=== PATIENT | female | born 1960 | race Caucasian/White ===

== ENCOUNTER → 2017-05-08 | Outpatient (CLI) | payer OTHER ==
--- NOTE | 2017-05-09 06:33 | REP ---
Clinical: History of goiter. Technique: Real time rolle scale and color evaluation using linear high frequency transducer. Findings: Thyroid gland is essentially normal in contour and overall echogenicity without significant lesion or cyst. Right lobe measures 6.0 x 2.0 x 1.3 cm with a solitary hypoechoic nodule in the lower pole measuring 6 x 2 x 5 mm. Left lobe measures 5.6 x 1.4 x 1.2 cm with solitary hypoechoic nodule in the mid pole measuring 3 x 3 x 3 mm. Isthmus measures 2.7 mm in width. Impression: Relatively normal thyroid gland as described above with solitary nodules measuring up to 6 mm. Signed by Sidney Azar MD 05/09/2017 05:21 A
== END ==
LOC: M RAD 11:38
PROVIDERS: ATTEND Nurse Practitioner Family
DX: E04.9 Nontoxic goiter, unspecified (principal)

== ENCOUNTER → 2017-05-15 | Outpatient (REF) | payer OTHER ==
[2017-05-15 11:49] LABS: BASO # 0.1 K/mm3 (0.0-0.2); BASO % 0.8 % (0.0-1.0); EOS # 0.2 K/mm3 (0.0-0.50); EOS % 3.2 % (0.0-3.0); LARGE UNSTAINED CELL # 0.1 K/mm3 (0.0-0.4); LARGE UNSTAINED CELL % 1.6 % (0.0-4.0); LYMPH # 2.4 K/mm3 (1.5-4.5); LYMPH % 31.7 % (24.0-44.0); MEAN CORPUSCULAR HEMOGLOBIN 29.5 pg (27.0-33.0); MEAN CORPUSCULAR VOLUME 86.8 fl (80.0-96.0); MONO # 0.5 K/mm3 (0.0-0.8); MONO % 6.9 % (0.0-5.0); NEUTROPHILS # 4.1 K/mm3 (1.8-7.7); NEUTROPHILS % 55.9 % (36.0-66.0); PLATELET COUNT, AUTOMATED 238 k/mm3 (150-450); RED CELL DISTRIBUTION WIDTH 12.7 % (11.5-14.5); WHITE BLOOD COUNT 7.3 K/mm3 (4.0-10.0)
[2017-05-15 15:59] LABS: ALBUMIN 3.7 GM/DL (3.2-5.2); ALBUMIN/GLOBULIN RATIO 0.95 (1.00-1.93); ALKALINE PHOSPHATASE 68 U/L (45-117); ALT/SGPT 27 U/L (12-78); ANION GAP 5 MEQ/L (8-16); AST/SGOT 26 U/L (15-37); BILIRUBIN,TOTAL 0.4 MG/DL (0.2-1.0); BLOOD UREA NITROGEN 19 MG/DL (7-18); CALCIUM LEVEL 8.7 MG/DL (8.5-10.1); CARBON DIOXIDE LEVEL 30 MEQ/L (21-32); CHLORIDE LEVEL 101 MEQ/L (98-107); CHOLESTEROL LEVEL 204 MG/DL (<200); CREATININE FOR GFR 0.67 MG/DL (0.55-1.02); FREE T4 0.98 NG/DL (0.76-1.46); GLOMERULAR FILTRATION RATE > 60.0 (>51); GLUCOSE, FASTING 83 MG/DL (70-105); POTASSIUM SERUM 3.7 MEQ/L (3.5-5.1); SODIUM LEVEL 136 MEQ/L (136-145); TOTAL PROTEIN 7.6 GM/DL (6.4-8.2); TRIGLYCERIDES LEVEL 102 MG/DL (<150)
== END ==
LOC: M LABDRAW1 11:21
PROVIDERS: ATTEND Nurse Practitioner Family
DX: F32.0 Major depressive disorder, single episode, mild (principal); E04.9 Nontoxic goiter, unspecified; Z11.59 Encounter for screening for other viral diseases; Z13.220 Encounter for screening for lipoid disorders

== ENCOUNTER → 2017-06-05 | Outpatient (CLI) | payer OTHER ==
--- NOTE | 2017-06-05 12:42 | REP ---
BILATERAL SCREENING DIGITAL MAMMOGRAM: Comparisons are 01/31/2010, 02/18/2012, and 05/29/2016. There is very dense breast parenchyma, similar to the comparison studies. There is a new focal nodule-like density inferiorly in the right breast on the MLO view only measuring 5.5 mm. It is not identified on the CC view. There are no focal suspicious findings in the left breast. IMPRESSION: Incomplete. BIRADS category 0. Additional imaging evaluation is needed. The patient should return for spot compression views of the nodular density in the right breast. The decision for additional views, ultrasound or MRI will be based on these initial follow-up views. BI-RADS/ACR category 0 mammogram, incomplete. Additional imaging and/or prior images are needed before a final assessment can be assigned. This mammogram was interpreted with the aid of an FDA-approved computer-aided detection system. A. Negative x-ray reports should not delay biopsy if a dominant or clinically suspicious mass is present. B. Four to eight percent of cancers are not identified by x-ray. C. Adenosis and dense breasts may obscure an underlying neoplasm. The patient letter being requested is M0, dense breasts.
== END ==
LOC: M WHC 10:29
PROVIDERS: ATTEND Nurse Practitioner Family
DX: Z12.31 Encounter for screening mammogram for malignant neoplasm of breast (principal); R92.8 Other abnormal and inconclusive findings on diagnostic imaging of breast

== ENCOUNTER → 2017-06-05 | Outpatient (REF) | payer OTHER | LOC: M SFHCWAGY 11:08 | PROVIDERS: ATTEND Nurse Practitioner Family | DX: Z01.419 Encounter for gynecological examination (general) (routine) without abnormal findings (principal) ==

== ENCOUNTER → 2017-06-18 | Outpatient (CLI) | payer OTHER ==
--- NOTE | 2017-06-18 10:43 | REP ---
DIAGNOSTIC MAMMOGRAM RIGHT BREAST: Multiple spot compression views of the right breast are performed and correlated with the recent mammogram of 06/05/2017. The suspected nodular opacity on the right MLO view compresses out to an unchanged appearance compared to other prior exams. There is no persistent nodule on today's spot compression views. The findings are benign. IMPRESSION: ACR 2 benign. No persistent nodule on today's spot compression views. Recommend followup mammogram in 1 year. The patient letter being requested is M1. Signed by Robert Sparrow MD 06/18/2017 04:40 P
== END ==
LOC: M RAD 09:48
PROVIDERS: ATTEND Nurse Practitioner Family
DX: R92.8 Other abnormal and inconclusive findings on diagnostic imaging of breast (principal)

== ENCOUNTER → 2017-12-11 | Outpatient (CLI) | payer OTHER ==
[~2017-12-11] MED LIST: E-Z-GAS II EFFERVESCENT PACKET (SODIUM BICARB./CITRIC ACID/SIMETHICONE) As Ordered; E-Z-HD 98% w/w 340GM SUSP BTL As Ordered; E-Z-PAQUE 96% w/w SUSP 176GM BTL As Ordered
== END ==
LOC: M RAD 08:23
DX: K21.9 Gastro-esophageal reflux disease without esophagitis (principal)
CPT/HCPCS: 74241

== ENCOUNTER → 2018-02-19 | Outpatient (REF) | payer OTHER ==
[2018-02-19 10:54] LABS: BASO # 0.1 10^3/uL (0.0-0.2); BASO % 0.8 % (0.0-1.0); EOS # 0.2 10^3/uL (0.0-0.50); HEMATOCRIT 38.7 % (36.0-47.0); HEMOGLOBIN 12.8 g/dl (12.0-15.5); IMMATURE GRANULOCYTE % 0.1 % (0-3.0); LYMPH # 2.4 10^3/uL (1.5-4.5); LYMPH % 31.1 % (24.0-44.0); MEAN CORPUSCULAR HEMOGLOBIN 28.8 pg (27.0-33.0); MEAN CORPUSCULAR HGB CONC 33.1 g/dl (32.0-36.5); MEAN CORPUSCULAR VOLUME 87.2 fl (80.0-96.0); MONO # 0.7 10^3/uL (0.0-0.8); MONO % 8.7 % (0.0-5.0); NEUTROPHILS # 4.3 10^3/uL (1.8-7.7); NEUTROPHILS % 56.3 % (36.0-66.0); PLATELET COUNT, AUTOMATED 271 10^3/uL (150-450); RED BLOOD COUNT 4.44 10^6/uL (4.00-5.40); RED CELL DISTRIBUTION WIDTH 13.2 % (11.5-14.5); WHITE BLOOD COUNT 7.6 10^3/uL (4.0-10.0)
[2018-02-19 11:24] LABS: ALBUMIN 3.5 GM/DL (3.2-5.2); ALKALINE PHOSPHATASE 76 U/L (45-117); ALT/SGPT 35 U/L (12-78); ANION GAP 4 MEQ/L (8-16); AST/SGOT 29 U/L (7-37); BILIRUBIN,TOTAL 0.6 MG/DL (0.2-1.0); BLOOD UREA NITROGEN 18 MG/DL (7-18); CALCIUM LEVEL 8.5 MG/DL (8.5-10.1); CARBON DIOXIDE LEVEL 32 MEQ/L (21-32); CHLORIDE LEVEL 106 MEQ/L (98-107); CHOLESTEROL LEVEL 194 MG/DL (<200); CREATININE FOR GFR 0.74 MG/DL (0.55-1.30); FREE T4 0.81 NG/DL (0.76-1.46); GLOMERULAR FILTRATION RATE > 60.0 (>51); GLUCOSE, FASTING 88 MG/DL (70-100); HDL CHOLESTEROL 50 MG/DL (>40); NON-HDL-C 144 MG/DL; POTASSIUM SERUM 3.9 MEQ/L (3.5-5.1); SODIUM LEVEL 142 MEQ/L (136-145); TOTAL PROTEIN 7.4 GM/DL (6.4-8.2); TRIGLYCERIDES LEVEL 105 MG/DL (<150)
== END ==
LOC: M LABDRAW1 10:28
DX: K21.9 Gastro-esophageal reflux disease without esophagitis (principal); E04.9 Nontoxic goiter, unspecified; Z13.220 Encounter for screening for lipoid disorders

== ENCOUNTER → 2018-02-26 | Outpatient (CLI) | payer OTHER | LOC: M RAD 14:33 | DX: E04.9 Nontoxic goiter, unspecified (principal) | CPT/HCPCS: 76536 ==

== ENCOUNTER 2018-05-18 06:52 | Day surgery (SDC) | payer OTHER ==
[2018-05-18] MEDS: NS 1,000 ML IV (07:08)
[2018-05-18] MEDS ORDERED: PROPOFOL 200 MG/20 ML VIAL As Ordered (07:39)
[2018-05-18] MEDS ORDERED: fentaNYL 100 MCG/2 ML INJECTION (J3010) As Ordered (07:39)
[2018-05-18] MEDS ORDERED: LIDOCAINE 2% INJ 100 MG/5 ML SDV (FOR ANES.) As Ordered (07:39)
== END 2018-05-18 08:35 | disposition home or self-care (01) ==
LOC: M OPP 06:52
DX: Z12.11 Encounter for screening for malignant neoplasm of colon (principal); K64.0 First degree hemorrhoids; K22.8 Other specified diseases of esophagus; K44.9 Diaphragmatic hernia without obstruction or gangrene; R12 Heartburn; K21.9 Gastro-esophageal reflux disease without esophagitis; Z79.899 Other long term (current) drug therapy; Z83.3 Family history of diabetes mellitus; Z82.49 Family history of ischemic heart disease and other diseases of the circulatory system
CPT/HCPCS: 45378

== ENCOUNTER → 2018-06-08 | Outpatient (CLI) | payer OTHER | LOC: M WHC 10:31 | DX: Z12.31 Encounter for screening mammogram for malignant neoplasm of breast (principal); N60.31 Fibrosclerosis of right breast; N60.32 Fibrosclerosis of left breast | CPT/HCPCS: 77067 ==

== ENCOUNTER → 2018-06-08 | Outpatient (REF) | payer OTHER ==
[2018-06-10 14:15] LABS: HPV HYBRID CAPTURE II Negative (Negative)
== END ==
LOC: M SFHCWAGY 12:23
DX: Z12.4 Encounter for screening for malignant neoplasm of cervix (principal)

== ENCOUNTER 2018-07-23 18:41 | Emergency (ER) | payer OTHER ==
[2018-07-23] MEDS: ACETAMINOPHEN 325 MG TAB PO (20:32)
[2018-07-23] MEDS: ONDANSETRON 4 MG ORAL DISINTEGRATING TAB (Q0162 PER 1MG) PO (20:34)
== END 2018-07-23 21:36 | disposition home or self-care (01) ==
LOC: M ED 18:41
DX: S06.0X0A Concussion without loss of consciousness, initial encounter (principal); S00.83XA Contusion of other part of head, initial encounter; W22.8XXA Striking against or struck by other objects, initial encounter; Y92.018 Other place in single-family (private) house as the place of occurrence of the external cause; Z79.899 Other long term (current) drug therapy
CPT/HCPCS: Q0162

== ENCOUNTER → 2019-02-19 | Outpatient (REF) | payer OTHER ==
[~2019-02-19] MED LIST changes: +BIOT50004 PO; -E-Z-GAS II EFFERVESCENT PACKET (SODIUM BICARB./CITRIC ACID/SIMETHICONE) As Ordered; -E-Z-HD 98% w/w 340GM SUSP BTL As Ordered; -E-Z-PAQUE 96% w/w SUSP 176GM BTL As Ordered; +FAMO40TA3; +LORA-243; +MULT1TAB10 PO; +PANT40TA3; +PROB250C; +SIMP0.9A; +TRIA0.1P11 MT; +TRIA1PST TOP; +TRIAMCINOLONE; +VENTAER INH; +VITATAB11 PO; +ZOFR4TAB14 PO; +ZYRT10CA PO; +[UNRECOGNIZED DRUG - CODE] EX
[2019-02-19 12:50] LABS: HEMOGLOBIN A1c 5.8 %
[2019-02-19 13:01] LABS: C REACTIVE PROTEIN QUANTITATIV < 0.30 MG/DL (0.00-0.30); CHOLESTEROL LEVEL 223 MG/DL (<200); CHOLESTEROL RISK RATIO 4.207 (<5); CPK CREATINE PHOSPHOKINASE 99 U/L (26-192); FREE T4 0.97 NG/DL (0.76-1.46); HDL CHOLESTEROL 53 MG/DL (>40); LDL CHOLESTEROL 144.4 MG/DL (<100); NON-HDL-C 170 MG/DL; TRIGLYCERIDES LEVEL 128 MG/DL (<150)
[2019-02-19 13:02] LABS: TOTAL 25(OH) VITAMIN D 23.8 NG/ML (30.0-100.0)
[2019-02-19 13:03] LABS: PTH INTACT 41.8 PG/ML (18.5-88.0)
== END ==
LOC: M SFHCPLAZ 10:18
PROVIDERS: ATTEND Family Medicine
DX: E78.2 Mixed hyperlipidemia (principal); E04.1 Nontoxic single thyroid nodule

== ENCOUNTER → 2019-02-25 | Outpatient (CLI) | payer OTHER ==
--- NOTE | 2019-02-26 03:56 | REP ---
Clinical: Thyroid nodule. Technique: Real time rolle scale and color evaluation using linear high frequency transducer. Comparison: 02/26/2018. Findings: Thyroid parenchyma is relatively normal with few scattered relatively stable nodules/cysts again noted. Isthmus measures 1.7 mm in width. Right lobe measures 5.7 x 1.7 x 1.4 cm with 3 x 2 x 3 mm upper pole cyst, 4 x 2 x 4 mm solid mid pole nodule, 2 x 2 x 1 mm mid/lower pole cyst and 1 x 2 x 2 mm lower pole cyst. Left lobe measures 5.8 x 1.5 x 1.4 cm with two 3 x 2 x 3 mm upper pole nodules and 4 x 3 x 4 mm complex mid pole cyst. Impression: Stable examination. No significant change from prior examination. Electronically Signed by Sidney Azar MD 02/26/2019 03:48 A
== END ==
LOC: M RAD 07:47
PROVIDERS: ATTEND Family Medicine
DX: E04.1 Nontoxic single thyroid nodule (principal)

== ENCOUNTER 2019-03-08 17:32 | Emergency (ER) | payer OTHER ==
[~2019-03-08] VITALS: Ht 172.7 cm; Wt 81.8 kg
[2019-03-08] MEDS ORDERED: D 50CAP PO (19:44)
[2019-03-08] MEDS ORDERED: FAMO40TA3 PO (19:44)
[2019-03-08] MEDS ORDERED: SM A10CA PO (19:44)
[2019-03-08] MEDS ORDERED: PANT40TA3 PO (19:44)
--- NOTE | 2019-03-08 21:16 | REPVR ---
EXAM: US Duplex Left Lower Extremity Veins, Limited EXAM DATE/TIME: 03/08/2019 8:46 PM CLINICAL HISTORY: 59 years old, female; Pain; Other: Knee; Additional info: Leg pain TECHNIQUE: Imaging protocol: Real-time Duplex ultrasound of the Left Lower Extremity with 2-D rolle scale, color Doppler flow and spectral waveform analysis. Limited exam focused on the left lower extremity veins. COMPARISON: No relevant prior studies available. FINDINGS: Left deep veins: Unremarkable. The common femoral, femoral and popliteal veins are patent without thrombus. Normal compressibility, augmentation response and Doppler waveforms. Left superficial veins: Unremarkable. Saphenofemoral junction is patent without thrombus. Soft tissues: Unremarkable. IMPRESSION: No sonographic evidence of deep vein thrombosis. Electronically signed by: Sylvester Taylor On 03/08/2019 21:16:07 PM
[2019-03-08 21:54] VITALS: BP 140/69
--- NOTE | 2019-03-09 01:14 | REP ---
Clinical: Acute knee pain Technique: AP, lateral, bilateral oblique and sunrise views left knee . Findings: Mild tricompartmental osteoarthritic degenerative changes are appreciated including cortical irregularities of the femoral condyles, subchondral/periarticular sclerosis involving the posterior patellar surface along with marginal patellar spurring and mild joint space narrowing. No acute fracture dislocation. No obvious effusion. Impression: Mild tricompartmental osteoarthritic degenerative changes. No acute fracture or dislocation. Electronically Signed by Sidney Azar MD 03/09/2019 01:05 A
== END 2019-03-08 22:00 | disposition home or self-care (01) ==
LOC: M ED 17:32
DX: M25.562 Pain in left knee (principal); M17.12 Unilateral primary osteoarthritis, left knee; M25.561 Pain in right knee; Z79.899 Other long term (current) drug therapy

== ENCOUNTER → 2019-07-06 | Outpatient (CLI) | payer OTHER ==
[~2019-07-06] MED LIST changes: +D 50CAP PO; +FAMO40TA3 PO; +PANT40TA3 PO; +SM A10CA PO
--- NOTE | 2019-07-06 12:43 | REPMRS ---
Patient History The patient states she had a clinical breast exam in 06/2019. Patient is postmenopausal. Family history of breast cancer at age 50 or over in maternal aunt, breast cancer at age 50 or over in maternal aunt, breast cancer at age 55 in maternal cousin. Took hormonal contraceptives for 12 years. 3D TOMOSYNTHESIS WAS PERFORMED. The [facility] lifetime risk for breast cancer is 16.0%. Digital Woman Screen Mammo: July 06, 2019 - Exam #: [id number] Bilateral CC and MLO view(s) were taken. Technologist: Evelyn Gregorio, Technologist Prior study comparison: June 08, 2018, bilateral digital woman screen mammo performed at [facility]. June 18, 2017, right breast digital mammo diagnostic unilateral, performed at [facility]. FINDINGS: The breast tissue is heterogeneously dense. This may lower the sensitivity of mammography. There has been no change in the appearance of the mammogram from the prior studies. There is a moderate amount of residual fibroglandular tissue which is fairly symmetric. There is no interval development of dominant mass, areas of architectural distortion, or clustered microcalcification typical of malignancy. Assessment: BI-RADS/ACR category 1 mammogram. Negative Mammogram. Recommendation Routine screening mammogram in 1 year (for women over age 40). This mammogram was interpreted with the aid of an FDA-approved computer-aided dectection system. Electronically Signed By: Robert Sparrow MD 07/06/19 [id number]
== END ==
LOC: M WHC 09:56
PROVIDERS: ATTEND Nurse Practitioner Family
DX: Z12.31 Encounter for screening mammogram for malignant neoplasm of breast (principal); Z80.3 Family history of malignant neoplasm of breast

== ENCOUNTER → 2019-07-26 | Outpatient (CLI) | payer OTHER ==
--- NOTE | 2019-07-26 15:13 | REP ---
Right shoulder: Three views. History: Impingement syndrome right shoulder. Findings: There is minimal spurring at the acromioclavicular articulation. The glenohumeral and AC joints are normally aligned. Periarticular soft tissues are unremarkable. No erosive changes seen. Impression: Minimal osteoarthritic spurring at the AC joint. Otherwise negative. Electronically Signed by Reggie Montesinos MD 07/26/2019 03:04 P
--- NOTE | 2019-07-26 18:34 | REP ---
Cervical spine radiographs: Seven views: History: Impingement syndrome. Right shoulder. Comparison CT study of the cervical spine is from July 23, 2018. Findings: Lateral views of the cervical spine done and flexion and extension show straightening. Cervical vertebral body heights are preserved. Degenerative disc changes are seen with anterior posterior spurring at C5-6 and C6-7. No subluxation or instability is seen. Vertebral soft tissues are unremarkable. Open mouth odontoid and AP views are normal in appearance. Oblique views demonstrate intact neural foramina and normally aligned facets bilaterally at each cervical level. Impression: Degenerative disc disease at C5-6 and C6-7. Otherwise negative. Electronically Signed by Reggie Montesinos MD 07/27/2019 09:34 A
== END ==
LOC: M RAD 13:34
PROVIDERS: ATTEND Family Medicine
DX: M75.41 Impingement syndrome of right shoulder (principal)

== ENCOUNTER → 2019-07-26 | Outpatient (REF) | payer OTHER ==
[2019-07-26 13:25] LABS: BASO # 0.1 10^3/uL (0.0-0.2); BASO % 0.7 % (0.0-1.0); EOS # 0.2 10^3/uL (0.0-0.5); EOS % 2.9 % (0.0-3.0); HEMATOCRIT 40.5 % (36.0-47.0); HEMOGLOBIN 12.9 g/dl (12.0-15.5); LYMPH # 2.6 10^3/uL (1.5-5.0); LYMPH % 31.6 % (24.0-44.0); MEAN CORPUSCULAR HEMOGLOBIN 27.8 pg (27.0-33.0); MEAN CORPUSCULAR HGB CONC 31.9 g/dl (32.0-36.5); MEAN CORPUSCULAR VOLUME 87.3 fl (80.0-96.0); MONO # 0.7 10^3/uL (0.0-0.8); MONO % 8.5 % (0.0-5.0); NEUTROPHILS # 4.6 10^3/uL (1.5-8.5); NEUTROPHILS % 56.1 % (36.0-66.0); PLATELET COUNT, AUTOMATED 231 10^3/uL (150-450); RED BLOOD COUNT 4.64 10^6/uL (4.00-5.40); WHITE BLOOD COUNT 8.2 10^3/uL (4.0-10.0)
[2019-07-26 13:26] LABS: APPEARANCE, URINE HAZY (CLEAR); BACTERIA, URINE AUTO 2+ (NEGATIVE); BILIRUBIN, URINE AUTO NEGATIVE (NEGATIVE); BLOOD, URINE BLOOD NEGATIVE (NEGATIVE); COLOR, URINE YELLOW (YELLOW); GLUCOSE, URINE (UA) AUTO NEGATIVE (NEGATIVE); KETONE, URINE AUTO NEGATIVE (NEGATIVE); LEUKOCYTE ESTERASE, URINE AUTO NEGATIVE (NEGATIVE); MUCUS, URINE SMALL (NEGATIVE); NITRITE, URINE AUTO NEGATIVE (NEGATIVE); PROTEIN, URINE AUTO NEGATIVE (NEGATIVE); RBC, URINE AUTO 1 /HPF (0-3); SPECIFIC GRAVITY URINE AUTO 1.017 (1.002-1.035); SQUAMOUS EPITHELIAL CELL UR AU 6 /HPF (0-6); UROBILINOGEN, URINE AUTO 0.2 mg/dL (0.0-2.0); WBC, URINE AUTO 1 /HPF (0-3)
[2019-07-26 13:31] LABS: ALT/SGPT 34 U/L (12-78); BILIRUBIN,TOTAL 0.6 MG/DL (0.2-1.0); BLOOD UREA NITROGEN 21 MG/DL (7-18); CALCIUM LEVEL 9.3 MG/DL (8.5-10.1); CARBON DIOXIDE LEVEL 29 MEQ/L (21-32); CHLORIDE LEVEL 105 MEQ/L (98-107); CHOLESTEROL LEVEL 219 MG/DL (<200); CHOLESTEROL RISK RATIO 3.775 (<5); CREATININE FOR GFR 0.74 MG/DL (0.55-1.30); GLOMERULAR FILTRATION RATE > 60.0 (>51); GLUCOSE, FASTING 84 MG/DL (70-100); HDL CHOLESTEROL 58 MG/DL (>40); LDL CHOLESTEROL 138 MG/DL (<100); NON-HDL-C 161 MG/DL; POTASSIUM SERUM 4.1 MEQ/L (3.5-5.1); SODIUM LEVEL 141 MEQ/L (136-145); TOTAL PROTEIN 8.4 GM/DL (6.4-8.2); TRIGLYCERIDES LEVEL 117 MG/DL (<150)
[2019-07-26 13:38] LABS: TOTAL 25(OH) VITAMIN D 64.6 NG/ML (30.0-100.0)
[2019-07-26 13:57] LABS: MALB URINE SIEMENS 12.4 MG/L; MAU/CREAT RATIO 9.9 MCG/MG (0.0-30.0)
[2019-07-26 15:02] LABS: HEMOGLOBIN A1c 5.5 %
== END ==
LOC: M LABDRAW1 13:09
PROVIDERS: ATTEND Family Medicine
DX: R73.01 Impaired fasting glucose (principal); E55.9 Vitamin D deficiency, unspecified

== ENCOUNTER → 2019-12-14 | Outpatient (CLI) | payer OTHER ==
--- NOTE | 2019-12-14 14:52 | REPVR ---
PROCEDURE INFORMATION: Exam: CT Temporal Bones Without Contrast. Exam date and time: 12/14/2019 1:59 PM Age: 59 years old Clinical indication: Other: Otorrhea; Additional info: Otorrhea, left ear TECHNIQUE: Imaging protocol: Computed tomography images of the temporal bones without contrast. Radiation optimization: All CT scans at this facility use at least one of these dose optimization techniques: automated exposure control; mA and/or kV adjustment per patient size (includes targeted exams where dose is matched to clinical indication); or iterative reconstruction. COMPARISON: CT Head without contrast 07/23/2018 8:05 PM FINDINGS: RIGHT TEMPORAL BONE: Right inner ear: Normal. Right ossicles and middle ear: Normal. The middle ear ossicles are intact. Right external auditory canal: Normal. Right facial nerve canal: Normal. Right jugular foramen: No jugular dehiscence. Right carotid canal: No aberrent carotid canal. Right mastoid air cells: Normal. No mastoid effusions. LEFT TEMPORAL BONE: Left inner ear: Normal. Left ossicles and middle ear: Normal. The middle ear ossicles are intact. Left external auditory canal: Normal. Left facial nerve canal: Normal. Left jugular foramen: No jugular dehiscence. Left carotid canal: No aberrent carotid canal. Left mastoid air cells: Normal. No mastoid effusions. IMPRESSION: No acute findings. Electronically signed by: Tang Atkinson On 12/14/2019 14:52:02 PM
== END ==
LOC: M RAD 13:48
PROVIDERS: ATTEND Otolaryngology
DX: H92.12 Otorrhea, left ear (principal)

== ENCOUNTER → 2020-07-27 | Outpatient (CLI) | payer OTHER ==
[~2020-07-27] MED LIST changes: +PANT40TA29; +PANT40TA29 PO; -PANT40TA3; -PANT40TA3 PO
--- NOTE | 2020-07-27 12:31 | REPMRS ---
Patient History The patient states she had a clinical breast exam in 07/2020. Family history of breast cancer at age 50 or over in maternal aunt, breast cancer at age 50 or over in maternal aunt, breast cancer at age 55 in maternal cousin. Took hormonal contraceptives for 12 years. 3D TOMOSYNTHESIS WAS PERFORMED. The [facility] lifetime risk for breast cancer is 15.6%. VOLPARA DENSITY B. Digital Woman Screen Mammo: July 27, 2020 - Exam #: [id number] Bilateral CC and MLO view(s) were taken. Technologist: Evelyn Gregorio, Technologist Prior study comparison: July 06, 2019, bilateral digital woman screen mammo performed at [facility]. June 08, 2018, bilateral digital woman screen mammo performed at [facility]. FINDINGS: The breast tissue is heterogeneously dense. This may lower the sensitivity of mammography. There has been no change in the appearance of the mammogram from the prior studies. There is a moderate amount of residual fibroglandular tissue which is fairly symmetric. There is no interval development of dominant mass, areas of architectural distortion, or clustered microcalcification typical of malignancy. Assessment: BI-RADS/ACR category 1 mammogram. Negative Mammogram. Recommendation Routine screening mammogram in 1 year (for women over age 40). This mammogram was interpreted with the aid of an FDA-approved computer-aided dectection system. Electronically Signed By: Robert Sparrow MD 07/27/20 0401
== END ==
LOC: M WHC 10:33
PROVIDERS: ATTEND Nurse Practitioner Family
DX: Z12.31 Encounter for screening mammogram for malignant neoplasm of breast (principal)

== ENCOUNTER → 2020-08-30 | Outpatient (CLI) | payer OTHER ==
[2020-08-30 15:42] LABS: ALBUMIN 3.9 GM/DL (3.2-5.2); ALT/SGPT 33 U/L (12-78); BILIRUBIN,TOTAL 0.6 MG/DL (0.2-1.0); BLOOD UREA NITROGEN 20 MG/DL (7-18); CALCIUM LEVEL 9.4 MG/DL (8.5-10.1); CARBON DIOXIDE LEVEL 30 MEQ/L (21-32); CHLORIDE LEVEL 106 MEQ/L (98-107); CHOLESTEROL LEVEL 200 MG/DL (<200); CREATININE FOR GFR 0.67 MG/DL (0.55-1.30); FREE T4 0.94 NG/DL (0.76-1.46); GLOMERULAR FILTRATION RATE > 60.0 (>51); GLUCOSE, FASTING 84 MG/DL (70-100); HDL CHOLESTEROL 50 MG/DL (>40); LDL CHOLESTEROL 125 MG/DL (<100); NON-HDL-C 150 MG/DL; NT-PRO BNP 57 PG/ML (<125); POTASSIUM SERUM 4.5 MEQ/L (3.5-5.1); SODIUM LEVEL 140 MEQ/L (136-145); TOTAL PROTEIN 8.1 GM/DL (6.4-8.2); TRIGLYCERIDES LEVEL 126 MG/DL (<150)
[2020-08-30 19:33] LABS: HEMOGLOBIN A1c 5.9 %
== END ==
LOC: M PLALAB 10:27
PROVIDERS: ATTEND Family Medicine
DX: R73.01 Impaired fasting glucose (principal); E78.2 Mixed hyperlipidemia; R60.9 Edema, unspecified

== ENCOUNTER → 2021-02-06 | Outpatient (REF) | payer OTHER ==
[2021-02-06 14:03] LABS: BASO # 0.1 10^3/uL (0.0-0.2); BASO % 0.8 % (0.0-1.0); EOS # 0.2 10^3/uL (0.0-0.5); EOS % 2.9 % (0.0-3.0); HEMOGLOBIN 13.8 g/dl (12.0-15.5); LYMPH # 2.4 10^3/uL (1.5-5.0); LYMPH % 32.9 % (24.0-44.0); MEAN CORPUSCULAR HGB CONC 32.1 g/dl (32.0-36.5); MEAN CORPUSCULAR VOLUME 87.2 fl (80.0-96.0); MONO # 0.6 10^3/uL (0.0-0.8); MONO % 8.1 % (2.0-8.0); PLATELET COUNT, AUTOMATED 269 10^3/uL (150-450); RED BLOOD COUNT 4.93 10^6/uL (4.00-5.40); WHITE BLOOD COUNT 7.3 10^3/uL (4.0-10.0)
[2021-02-06 14:35] LABS: ALBUMIN 3.8 GM/DL (3.2-5.2); ALT/SGPT 40 U/L (12-78); BILIRUBIN,TOTAL 0.6 MG/DL (0.2-1.0); BLOOD UREA NITROGEN 16 MG/DL (7-18); CARBON DIOXIDE LEVEL 31 MEQ/L (21-32); CHLORIDE LEVEL 105 MEQ/L (98-107); FERRITIN 75 NG/ML (8-252); FREE T4 0.98 NG/DL (0.76-1.46); GLOMERULAR FILTRATION RATE > 60.0 (>51); GLUCOSE, FASTING 95 MG/DL (70-100); LIPASE 111 U/L (73-393); POTASSIUM SERUM 4.2 MEQ/L (3.5-5.1); SODIUM LEVEL 141 MEQ/L (136-145); TOTAL PROTEIN 7.8 GM/DL (6.4-8.2)
[2021-02-06 14:36] LABS: PTH INTACT 38.3 PG/ML (18.5-88.0); TOTAL 25(OH) VITAMIN D 78.5 NG/ML (30.0-100.0)
[2021-02-06 14:40] LABS: MAU/CREAT RATIO 4.8 MCG/MG (0.0-30.0)
[2021-02-06 14:58] LABS: HEMOGLOBIN A1c 5.5 %
[2021-02-07 15:09] LABS: H PYLORI SERUM QUANT IgG ABY 0.44 (0.00-0.79); INSULIN LEVEL 16.6 uIU/mL (2.6-24.9)
== END ==
LOC: M SFHCPLAZ 09:30
PROVIDERS: ATTEND Family Medicine
DX: R73.01 Impaired fasting glucose (principal); E55.9 Vitamin D deficiency, unspecified; E04.1 Nontoxic single thyroid nodule; R60.9 Edema, unspecified; K21.00 Gastro-esophageal reflux disease with esophagitis, without bleeding

== ENCOUNTER → 2021-02-20 | Outpatient (CLI) | payer OTHER ==
--- NOTE | 2021-02-20 08:44 | REP ---
INDICATION: RUQ PAIN. FINDINGS: Multiple ultrasonographic images of the liver show the hepatic parenchymal echo texture to appear mildly diffusely increased. There are no focal masses. There is no intrahepatic ductal dilatation. The common bile duct measures approximately 5.8 mm in its greatest transverse dimension. Multiple ultrasonographic images of the gallbladder show no focal or diffuse gallbladder wall thickening. There are no echogenic foci within the gallbladder lumen, which casts acoustic shadows. There is no pericholecystic edema. Images of the pancreatic region show no gross abnormality. The imaged portion of the right kidney is unremarkable. IMPRESSION: There is some evidence for fatty infiltration of the liver. Accredited by the [employer] in General Ultrasound. <Electronically signed by Shorty Barone > 02/20/21 [id number]
== END ==
LOC: M RAD 07:20
PROVIDERS: ATTEND Family Medicine
DX: R10.11 Right upper quadrant pain (principal)

== ENCOUNTER → 2021-04-13 | Outpatient (CLI) | payer OTHER ==
--- NOTE | 2021-04-13 15:35 | REP ---
INDICATION: EPIGASTRIC PAIN. COMPARISON: None TECHNIQUE/RADIOTRACER AND DOSE: FOLLOWING THE INTRAVENOUS ADMINISTRATION OF 6.6 MCI TECHNETIUM 99 M-MEBROFENIN, MULTIPLE IMAGES OF THE RIGHT UPPER QUADRANT ARE PERFORMED FOR 60 MINUTES. NEXT 8 OZ OF ENSURE ENLIVE IS INGESTED AND FURTHER IMAGING IS PERFORMED FOR 65 MINUTES. FINDINGS: THE GALLBLADDER IS VISUALIZED AT 25 MINUTES POST INJECTION. THERE IS BILIARY TO BOWEL TRANSIT AT 20MINUTES POST INJECTION. THERE IS NO SCINTIGRAPHIC EVIDENCE OF CHOLECYSTITIS. GALLBLADDER EJECTION FRACTION IS CALCULATED TO BE 41% WHICH IS NORMAL. IMPRESSION: NORMAL GALLBLADDER EJECTION FRACTION. <Electronically signed by Robert Sparrow > 04/13/21 [id number]
== END ==
LOC: M RAD 12:34
PROVIDERS: ATTEND Physician Assistant
DX: R10.13 Epigastric pain (principal)
CPT/HCPCS: 78227; A9537

== ENCOUNTER → 2021-05-11 | Outpatient (CLI) | payer OTHER ==
[~2021-05-11] MED LIST changes: +E-Z-GAS II EFFERVESCENT PACKET (SODIUM BICARB./CITRIC ACID/SIMETHICONE) As Ordered ONE; +E-Z-HD 98% w/w 340GM SUSP BTL As Ordered ONE; +E-Z-PAQUE 96% w/w SUSP 176GM BTL As Ordered ONE
--- NOTE | 2021-05-11 14:58 | REP ---
INDICATION: GERD W/ ESOPHAGITIS. COMPARISON: None TECHNIQUE: This procedure was performed by Kerry Flanagan [facility], under the direct supervision of Dr. Montesinos. Images were reviewed with Dr. Montesinos prior to dictation. Liquid barium and gas producing crystals were given in the erect position, as well as liquid barium in the prone oblique position in order to perform a double contrast upper GI examination. Additional liquid barium was given at the end of the examination in order to perform a small-bowel follow-through. FINDINGS: The hydropress operator film shows no organomegaly or pathological masses. The intestinal gas pattern is unremarkable. The oral and pharyngeal stages of deglutition demonstrated a hesitancy in the oral transfer. Esophageal transport is prompt and efficient and there is no evidence of esophagitis, stricture, or mucosal ring. There is evidence of a small hiatal hernia. No gastroesophageal reflux was visualized on today's exam. The stomach klein are normally outlined. The rugal folds are smooth and regular. There is no gastritis, neoplasm, or ulcerative disease. The duodenal klein are normally outlined. The mucosal folds are smooth and regular. There is no duodenitis, peptic ulcer disease or neoplasm. The visualized portion of the proximal small bowel appears normal in course and caliber. The barium column was followed through the small bowel to the level of the terminal ileum. Small bowel transit time is approximately 50 minutes. During fluoroscopy gentle palpation shows all loops are freely movable and pliable. There is no fixed angulated loops. The small bowel mucosal pattern is normal in course and caliber. There are multiple diverticulum throughout the small intestine, most are located in the distal ileum. There is no transition to suggest a partial small bowel obstruction. Spot filming of the terminal ileum shows it to be unremarkable. IMPRESSION: 1. Small hiatal hernia. 2. Small bowel diverticulosis as described above. One minute of fluoroscopy time was utilized for this procedure. Some fluoroscopic images are performed with last image hold technology. These images require no additional radiation. <Electronically signed by Kerry Flanagan > 05/11/21 1443 <Electronically signed by Demario Montesinos > 05/11/21 [id number]
== END ==
LOC: M RAD 09:16
PROVIDERS: ATTEND Family Medicine
DX: K21.00 Gastro-esophageal reflux disease with esophagitis, without bleeding (principal); K44.9 Diaphragmatic hernia without obstruction or gangrene; K57.10 Diverticulosis of small intestine without perforation or abscess without bleeding

== ENCOUNTER → 2021-07-23 | Outpatient (CLI) | payer OTHER ==
[~2021-07-23] MED LIST changes: -E-Z-GAS II EFFERVESCENT PACKET (SODIUM BICARB./CITRIC ACID/SIMETHICONE) As Ordered ONE; -E-Z-HD 98% w/w 340GM SUSP BTL As Ordered ONE; -E-Z-PAQUE 96% w/w SUSP 176GM BTL As Ordered ONE
--- NOTE | 2021-07-23 14:01 | REP ---
INDICATION: GERD. COMPARISON: None. TECHNIQUE/RADIOTRACER AND DOSE: 1.03 mCi of Technetium-99m sulfur colloid was ingested in two scrambled eggs and 6 ounces of water and sequential anterior and posterior images are acquired for an 89-minute imaging observation period. Regions of interest are drawn around the stomach to plot gastric emptying. FINDINGS: Expected T1/2 is 90 minutes. Twenty-two% emptying is observed in this patient during the 89-minute imaging observation period, for a calculated T1/2 in this patient of 204 minutes. IMPRESSION: Delayed gastric emptying <Electronically signed by Demario Montesinos > 07/23/21 1123
== END ==
LOC: M RAD 11:38
PROVIDERS: ATTEND Family Medicine
DX: K21.00 Gastro-esophageal reflux disease with esophagitis, without bleeding (principal)
CPT/HCPCS: 78264; A9541

== ENCOUNTER → 2021-07-31 | Outpatient (CLI) | payer OTHER ==
[~2021-07-31] MED LIST changes: +GASTROGRAFIN SOLUTION 30ML (Q9963) As Ordered ONE; +ISOVUE-370 76% 100ML VIAL As Ordered ONE
--- NOTE | 2021-07-31 12:57 | REP ---
INDICATION: IBS. COMPARISON: None TECHNIQUE: Axial contrast-enhanced images from the lung bases to the pubic symphysis using oral and 100 cc Isovue 370 intravenous contrast material. Coronal and sagittal reformations obtained. This CT examination was performed using the following dose reduction techniques: Automated exposure control, adjustment of mA and/or kv according to the patient's size, and the use of iterative reconstruction technique. FINDINGS: Mild fatty infiltration to the liver noted without focal hepatic lesion. Spleen, pancreas, gallbladder, bilateral adrenal glands and kidneys are normal. The enteric system including stomach, small, and large bowel appears normal. No evidence for obstruction or acute inflammatory process. Normal terminal ileum and appendix are identified in the right lower quadrant. Few scattered sigmoid diverticula noted without acute diverticulitis. Pelvis demonstrates normal bladder and enlarged myomatous uterus. No ascites. No free air. No intraperitoneal or retroperitoneal adenopathy. Abdominal aorta and vasculature appear normal. Musculoskeletal structures are intact and without acute osseous abnormality. IMPRESSION: No acute abdominopelvic pathology appreciated. Relatively normal appearance to the enteric system with few scattered sigmoid diverticula noted. Hepatosteatosis. Enlarged myomatous uterus. <Electronically signed by Sidney Azar > 07/31/21 [id number]
== END ==
LOC: M RAD 09:32
PROVIDERS: ATTEND Internal Medicine Gastroenterology
DX: K58.9 Irritable bowel syndrome, unspecified (principal)
CPT/HCPCS: 74177; Q9963; Q9967

== ENCOUNTER → 2021-09-10 | Outpatient (CLI) | payer OTHER ==
[~2021-09-10] MED LIST changes: -GASTROGRAFIN SOLUTION 30ML (Q9963) As Ordered ONE; -ISOVUE-370 76% 100ML VIAL As Ordered ONE
--- NOTE | 2021-09-11 09:30 | REP ---
INDICATION: TAMI ANNUAL MAMMO. COMPARISON: Multiple prior screening examinations, the most recent, 07/27/2020 TECHNIQUE: Digital screening (2D) mammography was performed bilaterally in the CC and MLO projections. Additionally, breast tomosynthesis (3D mammography) was performed bilaterally in the CC and MLO projections. FINDINGS: By history, the patient has no complaints of a palpable breast abnormality or other significant breast complaints. The Volpara volumetric breast density pattern is b, there are scattered areas of fibroglandular density. In the posterior 3rd of the right breast, directly deep to the nipple seen only on the MLO view, there is a 6 mm in diameter oval circumscribed isodense asymmetry. IMPRESSION: BIRADS/ACR : Category 0: Incomplete, need additional imaging evaluation. This patient's Tyrer-Cuzick lifetime breast cancer risk assessment score is 15.2%. This mammogram was interpreted with the aid of an FDA-approved computer-aided detection system. The patient states she has not had a clinical breast exam in more than 1 year. The patient letter being requested is M0. RECOMMENDATION: 2D and 3D focal compression of the right breast in the MLO orientation, an exaggerated CC view, a true lateral view, and ultrasound. <Electronically signed by Guy Nichols > 09/11/21 0921
== END ==
LOC: M WHC 15:32
PROVIDERS: ATTEND Family Medicine
DX: R92.2 Inconclusive mammogram (principal)

== ENCOUNTER → 2021-10-16 | Outpatient (CLI) | payer OTHER ==
[2021-10-16 15:36] LABS: HEMOGLOBIN A1c 5.5 %
[2021-10-16 16:00] LABS: ALBUMIN 3.9 GM/DL (3.2-5.2); ALT/SGPT 32 U/L (12-78); BILIRUBIN,TOTAL 0.5 MG/DL (0.2-1.0); BLOOD UREA NITROGEN 17 MG/DL (7-18); CALCIUM LEVEL 9.1 MG/DL (8.5-10.1); CARBON DIOXIDE LEVEL 31 MEQ/L (21-32); CHLORIDE LEVEL 104 MEQ/L (98-107); CHOLESTEROL LEVEL 216 MG/DL (<200); CHOLESTEROL RISK RATIO 3.927 (<5); CREATININE FOR GFR 0.73 MG/DL (0.55-1.30); FREE T4 0.92 NG/DL (0.76-1.46); GLOMERULAR FILTRATION RATE > 60.0 (>51); GLUCOSE, FASTING 84 MG/DL (70-100); HDL CHOLESTEROL 55 MG/DL (>40); LDL CHOLESTEROL 142 MG/DL (<100); NON-HDL-C 161 MG/DL; POTASSIUM SERUM 4.4 MEQ/L (3.5-5.1); PTH INTACT 36.5 PG/ML (18.5-88.0); SODIUM LEVEL 139 MEQ/L (136-145); TOTAL 25(OH) VITAMIN D 89.5 NG/ML (30.0-100.0); TOTAL PROTEIN 8.1 GM/DL (6.4-8.2); TRIGLYCERIDES LEVEL 94 MG/DL (<150)
== END ==
LOC: M PLALAB 11:42
PROVIDERS: ATTEND Family Medicine
DX: R73.01 Impaired fasting glucose (principal); E55.9 Vitamin D deficiency, unspecified; E78.2 Mixed hyperlipidemia; E04.1 Nontoxic single thyroid nodule

== ENCOUNTER → 2021-10-16 | Outpatient (CLI) | payer OTHER ==
--- NOTE | 2021-10-16 11:33 | REP ---
INDICATION: RIGHT BREAST ADD VIEWS. COMPARISON: 09/10/2021, 07/27/2020, 07/06/2019, 06/08/2018. TECHNIQUE: Additional spot compression views of the right breast are performed for a potential nodule on the right MLO view of 09/10/2021. FINDINGS: There is no persistent nodule on today's additional spot compression views. The parenchymal pattern is unchanged compared to other prior studies. IMPRESSION: BIRADS/ACR category 1, negative. No persistent nodule on today's additional views. This mammogram was interpreted with the aid of an FDA-approved computer-aided detection system. The patient letter being requested is M 1. RECOMMENDATION: Repeat screening mammography recommended 1 year (for women over 40). <Electronically signed by Robert Sparrow > 10/16/21 [id number]
== END ==
LOC: M WHC 09:52
PROVIDERS: ATTEND Family Medicine
DX: Z12.31 Encounter for screening mammogram for malignant neoplasm of breast (principal)
CPT/HCPCS: 77065; G0279

== ENCOUNTER → 2022-03-05 | Outpatient (CLI) | payer OTHER ==
[2022-03-05 13:45] LABS: ALBUMIN 3.8 GM/DL (3.2-5.2); ALT/SGPT 30 U/L (12-78); BILIRUBIN,TOTAL 0.5 MG/DL (0.2-1.0); BLOOD UREA NITROGEN 13 MG/DL (7-18); CALCIUM LEVEL 9.2 MG/DL (8.8-10.2); CARBON DIOXIDE LEVEL 30 MEQ/L (21-32); CHLORIDE LEVEL 109 MEQ/L (98-107); CREATININE FOR GFR 0.75 MG/DL (0.55-1.30); GLOMERULAR FILTRATION RATE > 60.0 (>45); GLUCOSE, FASTING 90 MG/DL (70-100); POTASSIUM SERUM 4.2 MEQ/L (3.5-5.1); SODIUM LEVEL 143 MEQ/L (136-145); TOTAL PROTEIN 7.6 GM/DL (6.4-8.2)
[2022-03-05 14:09] LABS: HEMOGLOBIN A1c 5.6 %
[2022-03-06 11:08] LABS: APOLIPOPROTEIN B/A-1 RATIO 0.7 ratio (0.0-0.6); H PYLORI SERUM QUANT IgG ABY 0.44 (0.00-0.79); INSULIN LEVEL 15.2 uIU/mL (2.6-24.9)
== END ==
LOC: M PLALAB 10:40
PROVIDERS: ATTEND Family Medicine
DX: R73.01 Impaired fasting glucose (principal); E78.2 Mixed hyperlipidemia; R10.13 Epigastric pain

== ENCOUNTER → 2022-03-29 | Outpatient (CLI) | payer OTHER | LOC: M RAD 12:10 | PROVIDERS: ATTEND Family Medicine | DX: E04.1 Nontoxic single thyroid nodule (principal) ==

== ENCOUNTER → 2022-07-16 | Outpatient (CLI) | payer OTHER | LOC: M WHC 10:37 | PROVIDERS: ATTEND Family Medicine | DX: E28.39 Other primary ovarian failure (principal) ==

== ENCOUNTER → 2022-08-06 | Outpatient (CLI) | payer OTHER ==
[2022-08-06 14:45] LABS: HEMOGLOBIN A1c 5.5 %
[2022-08-06 15:16] LABS: CHOLESTEROL RISK RATIO 3.062 (<5); FREE T4 1.03 NG/DL (0.76-1.46); IMMUNOGLOBULIN E 58.5 IU/ML (<100); THYROID STIMULATING HORMONE 1.04 uIU/ML (0.358-3.740)
[2022-08-06 15:41] LABS: PTH INTACT 34.7 PG/ML (18.5-88.0); TOTAL 25(OH) VITAMIN D 109.5 NG/ML (30.0-100.0)
== END ==
LOC: M PLALAB 11:24
PROVIDERS: ATTEND Family Medicine
DX: R73.01 Impaired fasting glucose (principal); E55.9 Vitamin D deficiency, unspecified; E78.2 Mixed hyperlipidemia; J30.2 Other seasonal allergic rhinitis

== ENCOUNTER → 2022-12-17 | Outpatient (CLI) | payer OTHER | LOC: M WHC 16:09 | PROVIDERS: ATTEND Nurse Practitioner Family | DX: Z12.31 Encounter for screening mammogram for malignant neoplasm of breast (principal) ==

== ENCOUNTER → 2022-12-18 | Outpatient (REF) | payer OTHER | LOC: M SFHCWAGY 13:44 | PROVIDERS: ATTEND Nurse Practitioner Family | DX: Z12.4 Encounter for screening for malignant neoplasm of cervix (principal) ==

== ENCOUNTER → 2023-02-11 | Outpatient (CLI) | payer OTHER ==
[2023-02-11 16:18] LABS: ALBUMIN 3.9 G/DL (3.2-5.2); ALKALINE PHOSPHATASE 81 U/L (46-116); ALT/SGPT 23 U/L (7.0-40); AST/SGOT 26 U/L (<34); BILIRUBIN,TOTAL 0.5 MG/DL (0.3-1.2); BLOOD UREA NITROGEN 19 MG/DL (9-23); CALCIUM LEVEL 8.8 MG/DL (8.3-10.6); CARBON DIOXIDE LEVEL 29 MMOL/L (20-31); CHLORIDE LEVEL 104 MMOL/L (98-107); CHOLESTEROL LEVEL 208 MG/DL (<200); CREATININE FOR GFR 0.74 MG/DL (0.55-1.30); CREATININE, URINE 106.2 MG/DL; GLOMERULAR FILTRATION RATE > 60.0 (>45); GLUCOSE, FASTING 77 MG/DL (74-106); HDL CHOLESTEROL 54.6 MG/DL (>40); NON-HDL-C 153.4 MG/DL; POTASSIUM SERUM 4.3 MMOL/L (3.5-5.1); SODIUM LEVEL 139 MMOL/L (136-145); TOTAL PROTEIN 7.4 G/DL (5.7-8.2); TRIGLYCERIDES LEVEL 117 MG/DL (<150)
[2023-02-11 16:19] LABS: MALB URINE SIEMENS < 3.0 MG/L; MAU/CREAT RATIO 2.8 MCG/MG (0.0-30.0)
[2023-02-11 16:20] LABS: C REACTIVE PROTEIN QUANTITATIV < 0.40 MG/DL (<1.0); PTH INTACT 54.4 PG/ML (18.5-88.0)
[2023-02-11 16:23] LABS: TOTAL 25(OH) VITAMIN D 84.9 NG/ML (20.0-100.0)
[2023-02-11 16:36] LABS: HEMOGLOBIN A1c 5.5 % (4.0-6.0)
== END ==
LOC: M PLALAB 12:12
PROVIDERS: ATTEND Family Medicine
DX: R73.01 Impaired fasting glucose (principal)

== ENCOUNTER → 2023-05-06 | Outpatient (CLI) | payer OTHER | LOC: M WHC 07:58 | PROVIDERS: ATTEND Nurse Practitioner Family | DX: R10.2 Pelvic and perineal pain (principal) ==

== ENCOUNTER → 2023-09-02 | Outpatient (CLI) | payer OTHER ==
[~2023-09-02] MED LIST changes: +ACID1TAB PO; +BIOT1TAB PO; +CETI10CA13 PO; +CHOL125C6 PO; +NASA1SPR; +PAME10CA PO; +VITATAB73 PO; +VITMTA PO
[2023-09-02 14:16] LABS: BASO # 0.1 10^3/uL (0.0-0.2); BASO % 0.6 % (0.0-1.0); EOS # 0.2 10^3/uL (0.0-0.5); EOS % 2.8 % (0.0-3.0); HEMATOCRIT 42.6 % (36.0-47.0); HEMOGLOBIN 13.9 g/dl (12.0-15.5); LYMPH # 2.8 10^3/uL (1.5-5.0); LYMPH % 34.4 % (24.0-44.0); MEAN CORPUSCULAR HEMOGLOBIN 28.6 pg (27.0-33.0); MEAN CORPUSCULAR HGB CONC 32.6 g/dl (32.0-36.5); MEAN CORPUSCULAR VOLUME 87.7 fl (80.0-96.0); MONO # 0.6 10^3/uL (0.0-0.8); MONO % 7.8 % (2.0-8.0); NEUTROPHILS # 4.4 10^3/uL (1.5-8.5); NEUTROPHILS % 54.2 % (36.0-66.0); PLATELET COUNT, AUTOMATED 294 10^3/uL (150-450); RED BLOOD COUNT 4.86 10^6/uL (4.00-5.40); WHITE BLOOD COUNT 8.1 10^3/uL (4.0-10.0)
[2023-09-02 14:36] LABS: INR 1.02; PROTHROMBIN TIME 13.1 SECONDS (12.5-14.5)
[2023-09-02 14:38] LABS: PARTIAL THROMBOPLASTIN TIME 30.9 SECONDS (24.8-34.2)
[2023-09-02 14:41] LABS: ALKALINE PHOSPHATASE 82 U/L (46-116); ALT/SGPT 25 U/L (7.0-40); AST/SGOT 28 U/L (<34); BILIRUBIN,TOTAL 0.7 MG/DL (0.3-1.2); BLOOD UREA NITROGEN 17 MG/DL (9-23); CALCIUM LEVEL 9.3 MG/DL (8.3-10.6); CARBON DIOXIDE LEVEL 30 MMOL/L (20-31); CHLORIDE LEVEL 105 MMOL/L (98-107); CREATININE FOR GFR 0.72 MG/DL (0.55-1.30); GLOMERULAR FILTRATION RATE > 60.0 (>45); GLUCOSE, FASTING 82 MG/DL (74-106); POTASSIUM SERUM 4.5 MMOL/L (3.5-5.1); SODIUM LEVEL 142 MMOL/L (136-145); TOTAL PROTEIN 7.8 G/DL (5.7-8.2)
[2023-09-02 14:42] LABS: FREE T4 0.94 NG/DL (0.89-1.76); THYROID STIMULATING HORMONE 1.056 uIU/ML (0.55-4.78)
[2023-09-02 14:43] LABS: FERRITIN 58.1 NG/ML (7.3-270.7)
== END ==
LOC: M PLALAB 11:24
PROVIDERS: ATTEND Family Medicine
DX: Z01.818 Encounter for other preprocedural examination (principal)

== ENCOUNTER → 2024-03-23 | Outpatient (CLI) | payer OTHER ==
[~2024-03-23] MED LIST changes: -BIOT50004 PO; +BIOT5CAP8 PO; +IBUP-1022 PO; +OXYC1TAB23 PO
== END ==
LOC: M WHC 07:26
PROVIDERS: ATTEND Family Medicine
DX: Z12.31 Encounter for screening mammogram for malignant neoplasm of breast (principal)

== ENCOUNTER → 2024-04-20 | Outpatient (CLI) | payer OTHER | LOC: M WHC 08:48 | PROVIDERS: ATTEND Family Medicine | DX: E04.1 Nontoxic single thyroid nodule (principal) ==

== ENCOUNTER → 2024-08-17 | Outpatient (CLI) | payer OTHER ==
[2024-08-17 13:40] LABS: BASO # 0.1 10^3/uL (0.0-0.2); BASO % 0.8 % (0.0-1.0); EOS # 0.2 10^3/uL (0.0-0.5); EOS % 2.5 % (0.0-3.0); HEMATOCRIT 42.3 % (36.0-47.0); HEMOGLOBIN 13.7 g/dl (12.0-15.5); LYMPH # 2.8 10^3/uL (1.5-5.0); LYMPH % 35.4 % (24.0-44.0); MEAN CORPUSCULAR HEMOGLOBIN 28.1 pg (27.0-33.0); MEAN CORPUSCULAR HGB CONC 32.4 g/dl (32.0-36.5); MEAN CORPUSCULAR VOLUME 86.7 fl (80.0-96.0); MONO # 0.7 10^3/uL (0.0-0.8); MONO % 8.9 % (2.0-8.0); NEUTROPHILS # 4.1 10^3/uL (1.5-8.5); NEUTROPHILS % 52.1 % (36.0-66.0); PLATELET COUNT, AUTOMATED 279 10^3/uL (150-450); RED BLOOD COUNT 4.88 10^6/uL (4.00-5.40); WHITE BLOOD COUNT 7.9 10^3/uL (4.0-10.0)
[2024-08-17 13:46] LABS: APPEARANCE, URINE HAZY (CLEAR); BACTERIA, URINE AUTO 2+ (NEGATIVE); BILIRUBIN, URINE AUTO NEGATIVE (NEGATIVE); BLOOD, URINE BLOOD NEGATIVE (NEGATIVE); COLOR, URINE YELLOW (YELLOW); GLUCOSE, URINE (UA) AUTO NEGATIVE (NEGATIVE); KETONE, URINE AUTO NEGATIVE (NEGATIVE); LEUKOCYTE ESTERASE, URINE AUTO 1+ (NEGATIVE); MUCUS, URINE SMALL (NEGATIVE); NITRITE, URINE AUTO NEGATIVE (NEGATIVE); PROTEIN, URINE AUTO NEGATIVE (NEGATIVE); RBC, URINE AUTO 0 /HPF (0-3); SQUAMOUS EPITHELIAL CELL UR AU 5 /HPF (0-6); UROBILINOGEN, URINE AUTO 0.2 mg/dL (0.0-2.0); WBC, URINE AUTO 2 /HPF (0-3)
[2024-08-17 13:48] LABS: CHOLESTEROL RISK RATIO 4.54 (<5); HDL CHOLESTEROL 51.9 MG/DL (>40); LDL CHOLESTEROL 146.3 MG/DL (<100); NON-HDL-C 184.1 MG/DL; PTH INTACT 53.4 PG/ML (18.5-88.0)
[2024-08-17 13:50] LABS: FREE T4 1.19 NG/DL (0.89-1.76)
[2024-08-17 13:51] LABS: FERRITIN 59.3 NG/ML (7.3-270.7); THYROID STIMULATING HORMONE 1.562 uIU/ML (0.55-4.78)
[2024-08-17 13:59] LABS: HEMOGLOBIN A1c 5.6 % (4.0-6.0)
== END ==
LOC: M PLALAB 10:14
PROVIDERS: ATTEND Family Medicine
DX: R10.13 Epigastric pain (principal); R73.01 Impaired fasting glucose; E78.2 Mixed hyperlipidemia; E55.9 Vitamin D deficiency, unspecified; I10 Essential (primary) hypertension

== ENCOUNTER → 2024-11-16 | Outpatient (CLI) | payer OTHER | LOC: M WHC 10:42 | PROVIDERS: ATTEND Family Medicine | DX: M85.80 Other specified disorders of bone density and structure, unspecified site (principal) ==

== ENCOUNTER → 2025-01-11 | Outpatient (CLI) | payer OTHER ==
[2025-01-11 14:30] LABS: BASO # 0.1 10^3/uL (0.0-0.2); BASO % 0.8 % (0.0-1.0); EOS # 0.2 10^3/uL (0.0-0.5); EOS % 2.6 % (0.0-3.0); HEMATOCRIT 43.7 % (36.0-47.0); HEMOGLOBIN 14.1 g/dl (12.0-15.5); LYMPH # 2.6 10^3/uL (1.5-5.0); LYMPH % 34.3 % (24.0-44.0); MEAN CORPUSCULAR HEMOGLOBIN 27.9 pg (27.0-33.0); MEAN CORPUSCULAR HGB CONC 32.3 g/dl (32.0-36.5); MEAN CORPUSCULAR VOLUME 86.5 fl (80.0-96.0); MONO # 0.6 10^3/uL (0.0-0.8); MONO % 8.4 % (2.0-8.0); NEUTROPHILS # 4.1 10^3/uL (1.5-8.5); NEUTROPHILS % 53.6 % (36.0-66.0); PLATELET COUNT, AUTOMATED 302 10^3/uL (150-450); RED BLOOD COUNT 5.05 10^6/uL (4.00-5.40); WHITE BLOOD COUNT 7.6 10^3/uL (4.0-10.0)
[2025-01-11 14:34] LABS: ALKALINE PHOSPHATASE 88 U/L (35-104); ALT/SGPT 22 U/L (7.0-40); AST/SGOT 24 U/L (<34); BILIRUBIN,TOTAL 0.5 MG/DL (0.3-1.2); BLOOD UREA NITROGEN 16 MG/DL (9-23); CALCIUM LEVEL 9.5 MG/DL (8.3-10.6); CARBON DIOXIDE LEVEL 30 MMOL/L (20-31); CHLORIDE LEVEL 105 MMOL/L (98-107); CHOLESTEROL LEVEL 211 MG/DL (<200); CHOLESTEROL RISK RATIO 3.63 (<5); GLOMERULAR FILTRATION RATE > 60.0 (>45); GLUCOSE, FASTING 101 MG/DL (74-106); MAGNESIUM LEVEL 1.8 MG/DL (1.8-2.4); POTASSIUM SERUM 4.5 MMOL/L (3.5-5.1); SODIUM LEVEL 144 MMOL/L (136-145); TRIGLYCERIDES LEVEL 175 MG/DL (<150)
[2025-01-11 14:36] LABS: FERRITIN 46.1 NG/ML (7.3-270.7); TOTAL 25(OH) VITAMIN D 90.7 NG/ML (20.0-100.0)
[2025-01-11 14:46] LABS: HEMOGLOBIN A1c 5.6 % (4.0-6.0)
[2025-01-11 15:00] LABS: PTH INTACT 28.5 PG/ML (18.5-88.0)
== END ==
LOC: M PLALAB 09:02
PROVIDERS: ATTEND Family Medicine
DX: R10.13 Epigastric pain (principal)

== ENCOUNTER → 2025-07-26 | Outpatient (CLI) | payer OTHER ==
[~2025-07-26] MED LIST changes: -IBUP-1022 PO; +IBUP600T42 PO
[2025-07-26 15:17] LABS: BASO # 0.0 10^3/uL (0.0-0.2); BASO % 0.5 % (0.0-1.0); EOS # 0.2 10^3/uL (0.0-0.5); EOS % 2.0 % (0.0-3.0); LYMPH # 2.6 10^3/uL (1.5-5.0); LYMPH % 31.6 % (24.0-44.0); MONO # 0.8 10^3/uL (0.0-0.8); MONO % 9.4 % (2.0-8.0); NEUTROPHILS # 4.6 10^3/uL (1.5-8.5); NEUTROPHILS % 56.3 % (36.0-66.0); PLATELET COUNT, AUTOMATED 252 10^3/uL (150-450)
[2025-07-26 15:35] LABS: ESTIMATED AVERAGE GLUCOSE 114.0 MG/DL (60-110)
[2025-07-26 15:50] LABS: ALT/SGPT 17.0 U/L (7.0-40); AST/SGOT 21.0 U/L (<34); CALCIUM LEVEL 8.7 MG/DL (8.3-10.6); CARBON DIOXIDE LEVEL 27.0 MMOL/L (20-31); CHLORIDE LEVEL 105.0 MMOL/L (98-107); CREATININE FOR GFR 0.77 MG/DL (0.55-1.30); GLOMERULAR FILTRATION RATE 86.6 (>45); MAGNESIUM LEVEL 1.9 MG/DL (1.8-2.4); POTASSIUM SERUM 4.3 MMOL/L (3.5-5.1); SODIUM LEVEL 138.0 MMOL/L (136-145)
== END ==
LOC: M PLALAB 09:46
PROVIDERS: ATTEND Family Medicine
DX: I10 Essential (primary) hypertension (principal); R10.13 Epigastric pain; R73.01 Impaired fasting glucose

== ENCOUNTER → 2025-07-26 | Outpatient (CLI) | payer OTHER | LOC: M WHC 08:48 | PROVIDERS: ATTEND Family Medicine | DX: Z12.31 Encounter for screening mammogram for malignant neoplasm of breast (principal) ==